=== PATIENT | male | born 1980 | race Caucasian/White ===

== ENCOUNTER → 2021-09-11 | Outpatient (CLI) | payer BC ==
--- NOTE | 2021-09-11 12:21 | XR ---
EXAMINATION TYPE: XR cervical spine comp DATE OF EXAM: 09/11/2021 COMPARISON: NONE HISTORY: Pain TECHNIQUE: Four views are submitted. FINDINGS: The odontoid is intact. There are no compression deformities. The prevertebral soft tissue structur es are within normal limits. There is severe degenerative disc disease C5-6 and C6-C7 with anterior hypertrophic spurring. Foraminal encroachment bilaterally this level. IMPRESSION: 1. Severe degenerative disc disease C5-C6 and C6-C7 with severe bilateral foraminal encroachment susp ected at C5-C6. Recommend follow-up MRI..
== END | disposition home or self-care (01) ==
LOC: RADXRMAIN 11:49
PROVIDERS: ATTEND Physician Assistant
DX: M50.322 Other cervical disc degeneration at C5-C6 level (principal); M50.323 Other cervical disc degeneration at C6-C7 level
CPT/HCPCS: 72050